=== PATIENT | male | born 1985 | race Caucasian/White ===

== ENCOUNTER 2020-12-17 16:35 | Emergency (ER) | payer SELFPAY ==
[~2020-12-17] VITALS: Ht 172.7 cm; Wt 75.3 kg
--- NOTE | 2020-12-17 16:40 | NUR ---
Patient to ER bed 07 to gown for evaluation. Side rails up.
[2020-12-17 16:41] VITALS: BP_SYST 129
--- NOTE | 2020-12-17 16:42 | NUR ---
Pt brought by self, A&Ox4, pt presents to ER with R side face swelling, broken tooth 1 year ago , skin pink and warm, cap refill <3, VSS
--- NOTE | 2020-12-17 16:45 | NUR ---
Dr. Villarreal to bedside to assess.
[2020-12-17 17:42] LABS: BASOPHILS % (AUTO) 0.2 % (0.0-2.0); EOSINOPHILS # (AUTO) 0.1 K/uL (0.0-0.4); HEMATOCRIT 47.6 % (36-54); HEMOGLOBIN 16.3 g/dL (14.0-18.0); LYMPHOCYTES # (AUTO) 3.3 K/uL (1.0-5.5); LYMPHOCYTES % (AUTO) 30.9 % (20.5-51.5); MEAN CORPUSCULAR HEMOGLOBIN 30 pg (27-31); MEAN CORPUSCULAR HGB CONC 34 % (32-36); MEAN CORPUSCULAR VOLUME 88 fL (79.0-98.0); MONOCYTES # (AUTO) 0.9 K/uL (0.0-1.0); MONOCYTES % (AUTO) 8.6 % (1.7-9.3); NEUTROPHILS # (AUTO) 6.2 K/uL (1.8-7.7); NEUTROPHILS % (AUTO) 59.3 % (40.0-70.0); PLATELET COUNT (AUTO) 324 K/uL (130-430); RED BLOOD CELL COUNT(AUTO) 5.43 MIL/uL (4.2-6.2); RED CELL DISTRIBUTION WIDTH 13.2 % (9.0-15.0); WHITE BLOOD COUNT (AUTO) 10.5 K/uL (4.8-10.8)
[2020-12-17 17:44] LABS: CREATININE 0.87 mg/dL (0.55-1.30); POTASSIUM 3.9 mmol/L (3.5-5.1)
[2020-12-17 17:48] LABS: C-REACTIVE PROTEIN QUANT 0.4 mg/dL (0-0.5)
[2020-12-17 17:50] LABS: ALBUMIN 4.2 g/dL (3.4-4.8); TOTAL BILIRUBIN 0.8 mg/dL (0.0-1.0)
[2020-12-17] MEDS ORDERED: CLIN300C12 PO (18:25)
[2020-12-17] MEDS ORDERED: IBUP-1971 PO (18:25)
[2020-12-17] MEDS ORDERED: CLINDAMYCIN HCL 150 MG CAPSULE PO ONE (18:30)
[2020-12-17] MEDS ORDERED: IBUPROFEN 800 MG TABLET PO ONE (18:30)
--- NOTE | 2020-12-17 18:35 | NUR ---
Patient given written and verbal discharge instructions and verbalizes understanding. Dr. Phil URIBE MD discussed with patient the results and treatment provided. Patient in stable condition. ID arm band removed. IV catheter removed intact and dressing applied, no active bleeding. Rx given per MD. Patient educated on pain management and to follow up with PMD. Pain Scale 0/10. Opportunity for questions provided and answered. Medication side effect fact sheet provided.
[2020-12-17 18:36] VITALS: BP_SYST 129
== END 2020-12-17 18:35 | disposition home or self-care (01) ==
LOC: SED 16:35
DX: L03.211 Cellulitis of face (principal); K02.9 Dental caries, unspecified; Z79.899 Other long term (current) drug therapy
CPT/HCPCS: 36415; 80053; 83605; 85025; 86140; 99283